=== PATIENT | male | born 1965 | race Hispanic/Latino ===

== ENCOUNTER → 2025-03-31 | Outpatient (CLI) | payer OTHER ==
--- NOTE | 2025-04-01 08:24 | HMCIMG ---
EXAM: CT Cardiac calcium scoring. CLINICAL HISTORY: Screening. TECHNIQUE: Thin collimated axial CT cardiac images were obtained. A CT scan is done according to ALARA (As Low As Reasonably Achievable). CONTRAST: None. COMPARISON: None provided. FINDINGS: Calcium Score: VESSEL Number of lesions Volume mm3 Equi. Mass/mg Calcium score LM 2 201.4 - 241.8 LAD 6 218.7 - 301.3 LCX 5 128.6 - 165.3 RCA 2 38.7 - 46.4 Total 15 587.4 - 754.8 IMPRESSION: The total calcium score is 754.8. 93th percentile. /[place]
== END | disposition home or self-care (01) ==
LOC: RAH 13:08
PROVIDERS: ATTEND Nurse Practitioner Family
DX: Z13.6 Encounter for screening for cardiovascular disorders (principal)
CPT/HCPCS: 75571